=== PATIENT | male | born 1985 | race Caucasian/White ===

== ENCOUNTER 2016-09-12 20:27 | Observation (INO) | payer BC ==
[~2016-09-12] VITALS: Wt 78.6 kg
[2016-09-12] MEDS ORDERED: ULTRAM 50MG TAB50 MG PO (20:44)
[2016-09-12 21:21] LABS: BASO % 0.1 % (0.0-2.0); EOS # 0.1 (0.0-0.7); EOS % 2.1 % (0-4.0); GRAN % 59.3 % (42.2-75.2); HEMATOCRIT 42.5 % (42.0-52.0); HEMOGLOBIN 14.8 g/dl (13.5-18.0); LYMPH # 1.8 (1.2-3.4); LYMPH % 27.1 % (20.0-51.0); MEAN CELL VOLUME 85 fl (80.0-100.0); MEAN CORPUSCULAR HEMOGLOBIN 30 pg (27.0-31.0); MEAN CORPUSCULAR HGB CONC 35 g/dl (33.0-37.0); MEAN PLATELET VOLUME 10.1 fl (7.4-10.4); MONO # 0.7 (0.1-0.6); PLATELET COUNT 232 K/mm3 (130-400); RED BLOOD COUNT 5.02 M/mm3 (4.20-5.60); REDCELL DISTRIBUTION WIDTH-CV 13.1 % (11.5-14.5); WHITE BLOOD COUNT 6.7 K/mm3 (4.8-10.8)
[2016-09-12 21:25] LABS: INR 1.1 (0.8-3.0); PROTHROMBIN TIME 11.7 SECONDS (9.7-12.8)
[2016-09-12] MEDS ORDERED: MOTRIN 600600 MG/TAB PO (21:29)
[2016-09-12 21:32] LABS: ADJUSTED CALCIUM 9.1 mg/dL (8.4-10.2); ALBUMIN 4.3 gm/dL (3.5-5.0); BILIRUBIN,TOTAL 0.7 mg/dL (0.0-1.0); CALCIUM 9.3 mg/dL (8.4-10.2); CREATININE, serum 1.17 mg/dL (0.66-1.25); POTASSIUM 3.8 mmol/L (3.4-5.0); TOTAL PROTEIN 7.7 gm/dL (6.4-8.2)
[2016-09-12 23:58] VITALS: BP 138/85; PULSE 75; TEMP 98.7
[2016-09-13 03:36] VITALS: BP 116/69; PULSE 58; TEMP 97.6
[2016-09-13 06:28] LABS: BASO % 0.1 % (0.0-2.0); EOS # 0.2 (0.0-0.7); EOS % 2.6 % (0-4.0); GRAN # 3.4 (1.4-6.5); GRAN % 48.7 % (42.2-75.2); HEMATOCRIT 41.7 % (42.0-52.0); HEMOGLOBIN 14.6 g/dl (13.5-18.0); LYMPH # 2.3 (1.2-3.4); LYMPH % 33.2 % (20.0-51.0); MEAN CELL VOLUME 85 fl (80.0-100.0); MEAN CORPUSCULAR HEMOGLOBIN 30 pg (27.0-31.0); MEAN CORPUSCULAR HGB CONC 35 g/dl (33.0-37.0); MEAN PLATELET VOLUME 10.8 fl (7.4-10.4); MONO # 1.1 (0.1-0.6); MONO % 15.1 % (1.7-9.3); PLATELET COUNT 222 K/mm3 (130-400); RED BLOOD COUNT 4.92 M/mm3 (4.20-5.60); REDCELL DISTRIBUTION WIDTH-CV 13.2 % (11.5-14.5)
[2016-09-13 06:38] LABS: CREATININE, serum 1.12 mg/dL (0.66-1.25)
[2016-09-13 07:40] VITALS: BP 128/65; PULSE 59; TEMP 97.6
[2016-09-13 11:22] LABS: HIV 1/2 Antibodies Non-Reactive; HIV-1p24 Antigen Non-Reactive
[2016-09-13 11:27] VITALS: BP 117/62; PULSE 84; TEMP 97.9
[2016-09-13 15:33] VITALS: BP 112/57; PULSE 83; TEMP 98.5
[2016-09-13] MEDS ORDERED: DOXYCYCLINE HY100 MG PO (16:50)
[2016-09-14 08:51] LABS: ROCKY MOUNTAIN SPOT FEVER-ABS <1:16 (<1:16)
[2016-09-15 11:34] LABS: EBV CAPSID IGM QUANTITATIVE 16.1 U/mL (<36.0); EBV IGM AB Negative (())
[2016-09-15 11:39] LABS: EBV EARLY ANTIGEN IGG Negative (()); EBV EARLY IGG QUANTITATIVE <5.0 U/mL (<9.0); EPSTEIN-BARR VIRUS VCA-IgG Positive (())
[2016-09-15 15:08] LABS: ANAPLASMA PHAGOCYTOPHILA IGG <1:64 titer (<1:64); E.CHAFFEENSIS IGG AB <1:64 titer (<1:64)
[2016-09-15 15:18] LABS: CADMIUM BLOOD <0.2 ng/mL (0.0-4.9); MERCURY,SERUM <1 ng/mL (0-9)
[2016-09-17 00:58] LABS: MYCOPLASMA IGG ANTIBODIES 5.24 (0.00-0.90)
[2016-09-17 15:37] LABS: C-ANCA 11 U/mL (0-99); P-ANCA 7 U/mL (0-99)
== END 2016-09-13 17:37 | disposition home or self-care (01) ==
LOC: COL.ER 20:27 → MEDICAL 22:09
PROVIDERS: Emergency Medicine; Nurse Practitioner Family; Psychiatry & Neurology Neurology
DX: R23.3 Spontaneous ecchymoses (principal); R20.8 Other disturbances of skin sensation
CPT/HCPCS: 99232-AI; G0378; J0696; J7050